=== PATIENT | female | born 1995 | race Hispanic/Latino ===

== ENCOUNTER → 2017-08-22 | Outpatient (CLI) | payer OTHER ==
[2017-08-22 09:11] LABS: BASOPHILS % (AUTO) 0.5 % (0.0-5.0); HEMATOCRIT 38.6 % (36-48); MEAN CORPUSCULAR HEMOGLOBIN 29.9 pg (27.0-33.0); MEAN CORPUSCULAR HGB CONC 33.2 g/dL (32.0-36.0); MEAN CORPUSCULAR VOLUME 90.2 fL (79-99); NEUTROPHILS % (AUTO) 53.5 % (40.0-77.0); PLATELET COUNT (AUTO) 251 K/uL (130-400); RED BLOOD CELL COUNT(AUTO) 4.28 MIL/uL (4.00-5.50); RED CELL DISTRIBUTION WIDTH 13.3 % (11.0-15.5); WHITE BLOOD COUNT (AUTO) 8.3 K/uL (4.8-10.8)
[2017-08-22 09:36] LABS: ALBUMIN 3.7 g/dL (3.5-5.0); BILIRUBIN,TOTAL 0.4 mg/dL (0.2-1.0); CREATININE 0.6 mg/dL (0.5-1.5); POTASSIUM 3.7 mmol/L (3.5-5.1); THYROID STIMULATING HORMONE 5.38 uIU/mL (0.36-3.74); TOTAL PROTEIN, SERUM 7.6 g/dL (6.0-8.3)
== END | disposition home or self-care (01) ==
LOC: LAB 08:38
PROVIDERS: ATTEND Family Medicine
DX: Z13.220 Encounter for screening for lipoid disorders (principal); Z13.29 Encounter for screening for other suspected endocrine disorder; L03.032 Cellulitis of left toe; R79.89 Other specified abnormal findings of blood chemistry
CPT/HCPCS: 36415; 80053; 80061; 84443; 85025

== ENCOUNTER → 2018-10-06 | Outpatient (CLI) | payer OTHER ==
[2018-10-06 09:34] LABS: BASOPHILS % (AUTO) 0.7 % (0.0-5.0); EOSINOPHILS % (AUTO) 3.4 % (0.0-8.0); HEMATOCRIT 39.8 % (36-48); LYMPHOCYTES % (AUTO) 34.9 % (21.0-51.0); MEAN CORPUSCULAR HEMOGLOBIN 30.1 pg (27.0-33.0); MEAN CORPUSCULAR HGB CONC 33.2 g/dL (32.0-36.0); MEAN CORPUSCULAR VOLUME 90.8 fL (79-99); MONOCYTES % (AUTO) 5.2 % (3.0-13.0); NEUTROPHILS % (AUTO) 55.8 % (40.0-77.0); PLATELET COUNT (AUTO) 285 K/uL (130-400); RED BLOOD CELL COUNT(AUTO) 4.38 MIL/uL (4.00-5.50); RED CELL DISTRIBUTION WIDTH 13.6 % (11.0-15.5); WHITE BLOOD COUNT (AUTO) 9.3 K/uL (4.8-10.8)
[2018-10-06 10:03] LABS: ALBUMIN 3.9 g/dL (3.5-5.0); BILIRUBIN,TOTAL 0.3 mg/dL (0.2-1.0); CREATININE 0.6 mg/dL (0.5-1.5); POTASSIUM 3.6 mmol/L (3.5-5.1); THYROID STIMULATING HORMONE 5.48 uIU/mL (0.36-3.74); TOTAL PROTEIN, SERUM 7.8 g/dL (6.0-8.3)
== END | disposition home or self-care (01) ==
LOC: LAB 08:23
PROVIDERS: ATTEND Internal Medicine
DX: Z00.00 Encounter for general adult medical examination without abnormal findings (principal)
CPT/HCPCS: 36415; 80053; 80061; 84443; 85025

== ENCOUNTER → 2020-03-21 | Outpatient (CLI) | payer OTHER ==
[2020-03-21 12:27] LABS: BASOPHILS % (AUTO) 0.4 % (0.0-5.0); EOSINOPHILS % (AUTO) 1.6 % (0.0-8.0); HEMATOCRIT 41.2 % (36-48); MEAN CORPUSCULAR HEMOGLOBIN 30.2 pg (27.0-33.0); MEAN CORPUSCULAR HGB CONC 32.3 g/dL (32.0-36.0); MEAN CORPUSCULAR VOLUME 93.4 fL (79-99); MONOCYTES % (AUTO) 6.3 % (3.0-13.0); NEUTROPHILS % (AUTO) 61.2 % (40.0-77.0); PLATELET COUNT (AUTO) 282 K/uL (130-400); RED BLOOD CELL COUNT(AUTO) 4.41 MIL/uL (4.00-5.50); RED CELL DISTRIBUTION WIDTH 12.8 % (11.0-15.5); WHITE BLOOD COUNT (AUTO) 8.1 K/uL (4.8-10.8)
[2020-03-21 12:53] LABS: BILIRUBIN,TOTAL 0.4 mg/dL (0.2-1.0); CREATININE 0.6 mg/dL (0.5-1.5); POTASSIUM 4.2 mmol/L (3.5-5.1); THYROID STIMULATING HORMONE 4.24 uIU/mL (0.36-3.74); TOTAL PROTEIN, SERUM 7.9 g/dL (6.0-8.3)
== END | disposition home or self-care (01) ==
LOC: LAB 03-20 12:17
PROVIDERS: ATTEND Nurse Practitioner
DX: E03.9 Hypothyroidism, unspecified (principal); R53.83 Other fatigue
CPT/HCPCS: 36415; 80053; 80061; 84443; 85025